=== PATIENT | female | born 1960 | race African-American/Black ===

== ENCOUNTER 2017-10-08 06:48 | Emergency (ER) | payer OTHER ==
[2017-10-08] MEDS ORDERED: IBUPROFEN 400 MG TAB ONE (07:28)
--- NOTE | 2017-10-08 08:30 | EDPHYS ---
Physician Documentation [facility] Name: Juan Servin Age: 57 yrs Sex: Female : 1960 Arrival Date: 10/08/2017 Time: 06:49 Bed 18 Private MD: [facility]AP[facility] Physician Pedro Gustafson HPI: 10/08 07:12 This 57 yrs old Black Female presents to ER via Ambulatory with complaints of Finger cp Injury. 07:12 The patient or guardian reports injury, pain, swelling, tenderness. The complaints cp affect the distal phalanx of left middle and ring fingers. Context: resulted from a crush injury, heavy door at work. Onset: The symptoms/episode began/occurred this morning. Associated signs and symptoms: Pertinent negatives: cyanosis distally, numbness distally. Historical: - Allergies: 07:06 No Known Allergies; fc - Home Meds: 07:06 tramadol 50 mg Oral tab 1 tab as needed [Active]; losartan 50 mg oral tab 1 tab once fc daily [Active]; - PMHx: 07:06 Hypertension; fc - PSHx: 07:06 None; fc - Immunization history:: Last tetanus immunization: unknown. - Social history:: Smoking status: Patient/guardian denies using tobacco. - Ebola Screening: : Patient negative for fever greater than or equal to 101.5 degrees Fahrenheit, and additional compatible Ebola Virus Disease symptoms Patient denies exposure to infectious person Patient denies travel to an Ebola-affected area in the 21 days before illness onset. ROS: 07:20 Constitutional: Negative for body aches, chills, fever, poor PO intake. cp 07:20 Eyes: Negative for injury, pain, redness, and discharge. cp 07:20 ENT: Negative for drainage from ear(s), ear pain, difficulty swallowing, difficulty handling secretions. 07:20 Cardiovascular: Negative for chest pain, palpitations. 07:20 Respiratory: Negative for cough, shortness of breath, wheezing. 07:20 Abdomen/GI: Negative for abdominal pain, nausea, vomiting, and diarrhea. 07:20 MS/extremity: Positive for injury or acute deformity, contusion, ecchymosis, pain, swelling, tenderness, of the palmar aspect of distal phalanx of left middle finger and palmar aspect of distal phalanx of left ring finger. 07:20 Skin: Negative for cellulitis, rash. 07:20 Neuro: Negative for numbness. 07:20 All other systems are negative. Exam: 07:25 Constitutional: The patient appears in no acute distress, alert, awake, non-toxic, well cp developed, well nourished. 07:25 Head/Face: Normocephalic, atraumatic. cp 07:25 Eyes: Periorbital structures: appear normal, Conjunctiva: normal, no exudate, no injection, Lids and lashes: appear normal, bilaterally. 07:25 ENT: External ear(s): are unremarkable, Nose: is normal, Mouth: is normal, Posterior pharynx: is normal, airway is patent. 07:25 Neck: ROM/movement: is normal, is supple, without pain, no range of motions limitations, no nuchal rigidity. 07:25 Chest/axilla: Inspection: normal. 07:25 Cardiovascular: Rate: normal. 07:25 Respiratory: the patient does not display signs of respiratory distress, Respirations: normal, no use of accessory muscles, no retractions, no splinting, no tachypnea. 07:25 Abdomen/GI: Exam negative for discomfort, distension, guarding, Inspection: abdomen appears normal. 07:25 Musculoskeletal/extremity: Extremities: grossly normal except: noted in the palmar aspect of distal phalanx of left middle finger and palmar aspect of distal phalanx of left ring finger: ecchymosis, pain, swelling, tenderness, ROM: intact in all extremities, Perfusion: the extremity is normally perfused throughout, Sensation intact. 07:25 Skin: cellulitis, is not appreciated, no rash present. 07:25 Neuro: Motor: intact throughout left middle and ring fingers. Vital Signs: 06:55 Weight 79.38 kg (R); Height 5 ft. 4 in. (162.56 cm) (R); Pain 8/10; fc 07:04 BP 135 / 95; Pulse 69; Resp 18; Temp 97.9; Pulse Ox 97% ; Weight 79.38 kg; Height 5 ft. ao 4 in. (162.56 cm); Pain 7/10; 07:04 Body Mass Index 30.04 (79.38 kg, 162.56 cm) ao Procedures: 08:35 Splinting: Splint applied to left middle and ring fingers using finger splint, applied cp by tech. Examined by me, post splint application: neurovascular intact, Patient tolerated well. MDM: 07:08 Patient medically screened. cp 07:30 Differential diagnosis: dislocation, open fracture, closed fracture, contusion. cp 08:28 Data reviewed: vital signs, nurses notes, radiologic studies, plain films. cp 08:28 Test interpretation: by ED physician or midlevel provider: plain radiologic studies. cp Counseling: I had a detailed discussion with the patient and/or guardian regarding: the historical points, exam findings, and any diagnostic results supporting the discharge/admit diagnosis, radiology results, the need for outpatient follow up, a family practitioner, to return to the emergency department if symptoms worsen or persist or if there are any questions or concerns that arise at home. Response to treatment: the patient's symptoms have mildly improved after treatment, and as a result, I will discharge patient. 10/09 08:15 ED course: Left message on voicemail to inform patient of xray results showing tuft cp fractures of left middle and fourth fingers. 10/08 07:10 Order name: XRAY Hand LEFT 3 View; Complete Time: 07:36 cp 10/09 07:36 Interpretation: Report reviewed. 10/08 08:13 Order name: Finger Splint: times 2; Complete Time: 08:31 cp Administered Medications: 10/08 07:34 Drug: Ibuprofen 800 mg Route: PO; ph 08:46 Follow up: Response: No adverse reaction ph Disposition: 10/08/17 08:29 Discharged to Home. Impression: Contusion of middle finger without damage to nail - Left, Contusion of left ring finger without damage to nail. - Condition is Stable. - Discharge Instructions: Crush Injury of the Hand. - Prescriptions for Ibuprofen 800 mg Oral Tablet - take 1 tablet by ORAL route every 8 hours As needed take with food; 30 tablet. - Work release form, Medication Reconciliation Form, Thank You Letter, Antibiotic Education, Prescription Opioid Use form. - Follow up: Private Physician; When: 5 - 6 days; Reason: Recheck today's complaints. - Problem is new. - Symptoms have improved. Addendum: 10/09/2017 12:20 Co-signature as Attending Physician, Pedro Gustafson MD I agree with the assessment and c stubbs plan of care. Signatures: Dispatcher [employer] Pedro Barone MD MD cha Chretien, Felicia RN RN Geneva Girard RN RN Pedro Meza PA PA cp Corrections: (The following items were deleted from the chart) 10/08 08:46 08:29 10/08/2017 08:29 Discharged to Home. Impression: Contusion of middle finger ph without damage to nail - Left; Contusion of left ring finger without damage to nail. Condition is Stable. Forms are Medication Reconciliation Form, Thank You Letter, Antibiotic Education, Prescription Opioid Use. Follow up: Private Physician; When: 5 - 6 days; Reason: Recheck today's complaints. Problem is new. Symptoms have improved. cp
--- NOTE | 2017-10-08 08:30 | ER ---
Nurse's Notes [facility] Name: Juan Servin Age: 57 yrs Sex: Female : 1960 Arrival Date: 10/08/2017 Time: 06:49 Bed 18 Private MD: Diagnosis: Contusion of middle finger without damage to nail-Left;Contusion of left ring finger without damage to nail Presentation: 10/08 06:55 Presenting complaint: Patient states: that she was at work and got her left hand fc 3rd/4th fingers smashed in a metal iron door. Transition of care: patient was not received from another setting of care. Onset of symptoms was October 08, 2017 at 03:45. Risk Assessment: Do you want to hurt yourself or someone else? Patient reports no desire to harm self or others. Initial Sepsis Screen: Does the patient meet any 2 criteria? No. Patient's initial sepsis screen is negative. Does the patient have a suspected source of infection? No. Patient's initial sepsis screen is negative. Care prior to arrival: Ice pack applied to injury. 06:55 Method Of Arrival: Ambulatory 06:55 Acuity: MAIRA 4 fc Triage Assessment: 07:34 General: Appears. ph Historical: - Allergies: 07:06 No Known Allergies; fc - Home Meds: 07:06 tramadol 50 mg Oral tab 1 tab as needed [Active]; losartan 50 mg oral tab 1 tab once fc daily [Active]; - PMHx: 07:06 Hypertension; fc - PSHx: 07:06 None; fc - Immunization history:: Last tetanus immunization: unknown. - Social history:: Smoking status: Patient/guardian denies using tobacco. - Ebola Screening: : Patient negative for fever greater than or equal to 101.5 degrees Fahrenheit, and additional compatible Ebola Virus Disease symptoms Patient denies exposure to infectious person Patient denies travel to an Ebola-affected area in the 21 days before illness onset. Screenin:55 Abuse screen: Denies threats or abuse. Nutritional screening: No deficits noted. fc Tuberculosis screening: No symptoms or risk factors identified. Fall Risk None identified. Assessment: 07:15 General: Appears in no apparent distress. comfortable, slender, well groomed, Behavior ph is calm, cooperative, appropriate for age. Pain: Pain: Complains of pain in palmar aspect of distal phalanx of left ring finger. 07:15 Neuro: Level of Consciousness is awake, alert, obeys commands, Oriented to person, ph place, time, situation. Cardiovascular: Capillary refill < 3 seconds Patient's skin is warm and dry. Respiratory: Airway is patent Respiratory effort is even, unlabored. GI: No signs and/or symptoms were reported involving the gastrointestinal system. Derm: Skin is intact, is healthy with good turgor, Skin is pink, warm \T\ dry. Bruising that is dark purple, on palmar aspect of distal phalanx of left ring finger. Musculoskeletal: Circulation, motion, and sensation intact. Range of motion: intact in all extremities, Swelling present in palmar aspect of distal phalanx of left little finger and palmar aspect of distal phalanx of left ring finger. 08:00 Reassessment: Patient appears in no apparent distress at this time. Patient and/or ph family updated on plan of care and expected duration. Pain level reassessed. Patient is alert, oriented x 3, equal unlabored respirations, skin warm/dry/pink. Pt resting quietly w/ lights off in room, awaiting Xray results. 08:41 Reassessment: Patient appears in no apparent distress at this time. Patient and/or ph family updated on plan of care and expected duration. Pain level reassessed. Patient is alert, oriented x 3, equal unlabored respirations, skin warm/dry/pink. Pt d/c home. Vital Signs: 06:55 Weight 79.38 kg (R); Height 5 ft. 4 in. (162.56 cm) (R); Pain 8/10; fc 07:04 BP 135 / 95; Pulse 69; Resp 18; Temp 97.9; Pulse Ox 97% ; Weight 79.38 kg; Height 5 ft. ao 4 in. (162.56 cm); Pain 7/10; 07:04 Body Mass Index 30.04 (79.38 kg, 162.56 cm) ao ED Course: 06:49 Patient arrived in ED. ds1 06:55 Arm band placed on Patient placed in an exam room, on a stretcher. fc 06:55 Patient has correct armband on for positive identification. Bed in low position. Call light in reach. 07:04 Triage completed. fc 07:08 Pedro Meza PA is PHCP. cp 07:08 Pedro Gustafson MD is Attending Physician. cp 07:21 Geneva Girard, RN is Primary Nurse. ph 07:40 X-ray completed. Portable x-ray completed in exam room. Patient tolerated procedure ml well. 07:42 XRAY Hand LEFT 3 View In Process Unspecified. EDMS 08:29 Aluminum finger splint applied to dorsal aspect of distal phalanx of left middle dh3 finger, dorsal aspect of middle phalanx of left middle finger, dorsal aspect of proximal phalanx of left middle finger, dorsal aspect of distal phalanx of left ring finger, dorsal aspect of middle phalanx of left ring finger, dorsal aspect of proximal phalanx of left ring finger, palmar aspect of distal phalanx of left ring finger, palmar aspect of middle phalanx of left ring finger, palmar aspect of proximal phalanx of left ring finger, palmar aspect of distal phalanx of left middle finger, palmar aspect of middle phalanx of left middle finger, palmar aspect of proximal phalanx of left middle finger and left ring fingernail. 08:45 No provider procedures requiring assistance completed. Patient did not have IV access ph during this emergency room visit. Administered Medications: 07:34 Drug: Ibuprofen 800 mg Route: PO; ph 08:46 Follow up: Response: No adverse reaction ph Outcome: 08:29 Discharge ordered by MD. cp 08:45 Discharged to home ambulatory. ph 08:45 Condition: good 08:45 Discharge instructions given to patient, Instructed on discharge instructions, follow up and referral plans. medication usage, Demonstrated understanding of instructions, follow-up care, medications, Prescriptions given X 1. 08:46 Patient left the ED. ph Signatures: Dispatcher [employer] EDRI Liz Rowe RN RN fc Sanford, Demi ds1 Janneth Spicer Patricia, RN RN ph Pedro Meza PA PA cp Ortiz, Alex RN Shamika Liriano 3 Corrections: (The following items were deleted from the chart) 08:18 07:15 Pain: ph ph
--- NOTE | 2017-10-08 09:04 | RAD REPORT ---
EXAM DESCRIPTION: RAD - Hand Left 3 View - 10/08/2017 7:43 am CLINICAL HISTORY: crush injury Trauma COMPARISON: No comparisons FINDINGS: Tuft fracture is seen involving the third and fourth digits. Mild soft tissue swelling is evident.
== END 2017-10-08 08:46 | disposition home or self-care (01) ==
LOC: ER 06:48
DX: S60.032A Contusion of left middle finger without damage to nail, initial encounter (principal); S60.042A Contusion of left ring finger without damage to nail, initial encounter; W23.0XXA Caught, crushed, jammed, or pinched between moving objects, initial encounter; Y93.9 Activity, unspecified; Y92.89 Other specified places as the place of occurrence of the external cause; Y99.8 Other external cause status; I10 Essential (primary) hypertension
CPT/HCPCS: 99284